=== PATIENT | male | born 1975 | race Caucasian/White ===

== ENCOUNTER 2018-01-17 08:19 | Day surgery (SDC) | payer OTHER ==
[~2018-01-17 08:19] MED LIST: CEFAZOLIN 2 GM/D5W RTU 2 GM/50 ML RTUPB IV ONE; CEFAZOLIN 2 GM/D5W RTU 2 GM/50 ML RTUPB IV PRN
[2018-01-17] MEDS ORDERED: ONDANSETRON HCL INJ/PF 4 MG/2 ML SDV ONE ×2 (08:28→17:13)
[2018-01-17] MEDS ORDERED: DEXAMETHASONE SOD PHOSPHATE INJ 4 MG/1 ML VIAL ONE (08:28)
[2018-01-17] MEDS ORDERED: SUCCINYLCHOLINE CHLORIDE INJ 200 MG/10 ML VIAL ONE (08:28)
[2018-01-17] MEDS ORDERED: KETOROLAC TROMETHAMINE 60 MG/2 ML SDV ONE (08:28)
[2018-01-17] MEDS ORDERED: ROCURONIUM BROMIDE INJ 50 MG/5 ML VIAL IV ONE (08:28)
--- NOTE | 2018-01-17 10:02 | RADIOLOGY REPORT (SQ) ---
EXAM DESCRIPTION: CHEST SINGLE VIEW COMPLETED DATE/TIME: 01/17/2018 9:48 am REASON FOR STUDY: PREOP COMPARISON: None. NUMBER OF VIEWS: One view. TECHNIQUE: Single frontal radiographic view of the chest acquired. LIMITATIONS: None. FINDINGS: LUNGS AND PLEURA: No opacities, masses or pneumothorax. No pleural effusion. MEDIASTINUM AND HILAR STRUCTURES: No masses. Contour normal. HEART AND VASCULAR STRUCTURES: Heart normal in size. Normal vasculature. BONES: No acute findings. HARDWARE: None in the chest. OTHER: No other significant finding. IMPRESSION: NO SIGNIFICANT RADIOGRAPHIC FINDING IN THE CHEST. TECHNICAL DOCUMENTATION: JOB ID: [id number] [employer]- All Rights Reserved Reading location - IP/workstation name: [email or web address]
[2018-01-17 10:13] LABS: HEMATOCRIT 42.2 % (37.9-51.0); HEMOGLOBIN 14.5 g/dL (13.5-17.0); MEAN CORPUSCULAR HEMOGLOBIN 30.4 pg (27.0-33.4); MEAN CORPUSCULAR HGB CONC 34.5 g/dL (32.0-36.0); MEAN CORPUSCULAR VOLUME 88 fl (80-97); PLATELET COUNT 185 10^3/uL (150-450); RED BLOOD COUNT 4.78 10^6/uL (4.35-5.55); RED CELL DISTRIBUTION WIDTH 13.4 % (11.5-14.0); WHITE BLOOD COUNT 5.1 10^3/uL (4.0-10.5)
[2018-01-17 10:36] LABS: ANION GAP 10 (5-19); BLOOD UREA NITROGEN 14 mg/dL (7-20); CALCIUM 9.4 mg/dL (8.4-10.2); CARBON DIOXIDE 28 mmol/L (22-30); CHLORIDE 103 mmol/L (98-107); GLUCOSE 87 mg/dL (75-110); POTASSIUM 5.3 mmol/L (3.6-5.0); SODIUM 140.9 mmol/L (137-145)
[2018-01-17] MEDS ORDERED: FENTANYL CITRATE INJ/PF 100 MCG/2 ML AMPUL ONE (11:50)
[2018-01-17] MEDS ORDERED: HYDROMORPHONE HCL INJ/PF 2 MG/ML AMPULE ONE (11:50)
[2018-01-17] MEDS ORDERED: ACETAMINOPHEN 1,000 MG/100 ML RTUPB IV ONE (11:50)
[2018-01-17] MEDS ORDERED: MIDAZOLAM 2 MG/2 ML INJ ONE (11:50)
[2018-01-17] MEDS ORDERED: PROPOFOL INJ 200 MG/20 ML VIAL IV ONE (11:50)
--- NOTE | 2018-01-17 13:11 | EKG REPORT ---
SEVERITY:- ABNORMAL ECG - SINUS BRADYCARDIA LEFT AXIS DEVIATION NONSPECIFIC T ABNORMALITIES, INFERIOR LEADS : Confirmed by: Chauncey Dubon MD 17-Jan-2018 13:10:50
[2018-01-17] MEDS ORDERED: MORPHINE SULFATE 10 MG/ML INJ IV PRN (14:09)
[2018-01-17] MEDS ORDERED: MEPERIDINE HCL/PF INJ 25 MG/1 ML DISP.SYRIN IV PRN (14:09)
[2018-01-17] MEDS ORDERED: FENTANYL CITRATE INJ/PF 100 MCG/2 ML AMPUL IV PRN ×3 (14:09)
[2018-01-17] MEDS ORDERED: DIPHENHYDRAMINE HCL 50 MG/ML VIAL IV PRN (14:09)
[2018-01-17] MEDS ORDERED: PROMETHAZINE HCL INJ 25 MG/1 ML VIAL IV PRN ×2 (14:09)
[2018-01-17] MEDS ORDERED: HYDROMORPHONE HCL INJ/PF 2 MG/ML AMPULE IV PRN (17:13)
[2018-01-17] MEDS ORDERED: OXYCODONE-ACETAMINOPHEN 5-325 MG TABLET PO PRN (17:13)
[2018-01-17] MEDS ORDERED: ROPIVACAINE HCL 0.5% INJ/PF (5 MG/1 ML) 30 ML SDV ONE (17:19)
[2018-01-17] MEDS ORDERED: LIDOCAINE 2%/EPINEPHRINE INJ 20 ML VIAL ONE (17:20)
[2018-01-17] MEDS ORDERED: LIDOCAINE 2% INJ (20 MG/ML) 20 ML MDV ONE (17:22)
--- NOTE | 2018-01-17 17:22 | Discharge Summary ---
Discharge Summary (SDC) - Discharge Final Diagnosis: Left elbow cubital tunnel syndrome, elbow osteoarthritis with impingement Date of Surgery: 01/17/18 Discharge Date: 01/17/18 Condition: Good Treatment or Instructions: Schedule Follow Up w/ Dr. Alfredo Griffith @ [facility] to be seen in 10-14 days or as scheduled [place]: [place]: [place]: Ice and elevate Keep splint clean/dry/intact. If your fingers become numb please unwrap the Garrick wrap but leave the splint in place, if the sensation does not return within 30 minutes please return to the emergency department. May begin finger range of motion attempting to make full fist. Please use ibuprofen (Motrin or Advil) 600-800 mg every 8 hours as needed for pain or fever DO NOT TAKE w/ TORADOL may use once TORADOL complete. You may also use acetaminophen (Tylenol) 1000 mg every 4-6 hours as needed for pain or fever. Please be aware that many medications contain acetaminophen, do not exceed a total of 1000 mg of acetaminophen every 6 hours. If ibuprofen and acetaminophen are not sufficient for your pain you may take the Percocet/[place]. Please be aware that the Percocet/[place] does contain Tylenol. Stool softener of choice when on pain medication. Prescriptions: Ketorolac Tromethamine [Toradol 10 mg Tablet] 10 mg PO Q8HP PRN #12 tablet PRN Reason: Oxycodone HCl/Acetaminophen [Percocet 5-325 mg Tablet] 1 tab PO Q6 PRN #25 tab PRN Reason: Discharge Diet: As Tolerated Respiratory Treatments at Home: Deep Breathing/Coughing Discharge Activity: No Lifting Over 10 Pounds, No Lifting/Push/Pulling Report the Following to Your Physician Immediately: Fever over 101 Degrees, Unusual Bleeding, Redness, Swelling, Warmth, Increased Soreness
--- NOTE | 2018-01-17 17:22 | Operative Report ---
Operative Report DATE OF SURGERY: 01/17/18 PREOPERATIVE DIAGNOSIS: Left elbow osteoarthritis with impingement, cubital tunnel syndrome POSTOPERATIVE DIAGNOSIS: Same OPERATION: Left elbow arthroscopy with cubital tunnel release ulnar nerve transposition, open debridement with capsular release/debridement arthroplasty SURGEON: KOSTAS PRIDE ANESTHESIA: GA COMPLICATIONS: None ESTIMATED BLOOD LOSS: Minimal PROCEDURE: Indication for above procedure: Pleasant 42-year-old male with long-standing history of osteoarthritis of his left elbow. Patient also has findings of cubital tunnel syndrome. He underwent cubital tunnel release on the right elbow which required revision transposition. He now has similar symptoms with limited motion on the left elbow. Today we discussed treatment options including operative versus nonoperative intervention after discussing risks and benefits of the operative procedure patient has consented for the procedure. Procedure In Detail: Patient was seen and evaluated in the preoperative holding area. The LEFT upper extremity was initialized and marked. Patient received 2g of Ancef IV for bacterial prophylaxis. Patient was taken back to the operative room where transferred to the operative table and placed under general anesthesia. Once they were adequately anesthetized a nonsterile tourniquet was placed on the upper extremity. Patient was placed in a lateral decubitus position axillary roll inserted, bilateral lower extremities and nonoperative right upper extremity were carefully padded and cervical spine placed in a neutral position A surgical team debriefing was performed ensuring all instrumentation was available, the surgical procedure was discussed with possible concerns reviewed. The upper extremity was prepped with ChloraPrep and draped in a sterile fashion. A timeout was done identifying correct patient, procedure and extremity everyone in attendance agree with this and verbalized no concerns. The extremity was exsanguinated the tourniquet was inflated to 250 mmHg. 20 cc of saline was injected into the soft site for insufflation Proximal anterior medial portal was established 2 cm proximal to the medial epicondyle and 1 cm anterior. The intramuscular septum was palpated and blunt dissection was performed with a hemostat down to the capsule. Arthroscope was introduced. Via triangulation a proximal anterior lateral portal was established 2 cm proximal and anterior to the lateral epicondyle. Diagnostic arthroscopy demonstrated degenerative changes of the radiocapitellar joint with chondral loss along the radial head grade IV. There was no evidence of capitellar degeneration. Osteophyte of the coronoid was also visualized. Loose body was found along the anterior aspect of the capitellum which coincide with patient's CT scan. Under direct visualization the loose body was retrieved and removed and measured 2 cm x 2 cm. The anterior capsule was then released off the anterior humerus and partially resected which improved patient' s passive extension. There was evidence of moderate synovitis and a partial synovectomy was performed as well. The portals were then switched and under direct visualization the coronoid osteophyte was removed with an osteotome. The edges were debrided with a bur. A small osteophyte proximal to the trochlear fossa was also removed with the bur. At completion of arthroscopy patient had full flexion with minimal residual flexion contracture. A longitudinal skin incision was made along the midline of the humerus posteriorly just proximal to the olecranon tip. The triceps was split and blunt dissection was performed until the olecranon fossa was visualized. There was significant osteophytes throughout the olecranon fossa and the olecranon tip. With an osteotome the olecranon tip was excised. With the use of the Acumed core bone graft reamers a 12 mm section of the olecranon fossa was removed. The edges were debrided with a rondure. At completion patient had full passive extension and flexion. The wounds were then copiously irrigated with normal saline. The portal holes were closed with interrupted 3-0 nylon suture. Triceps tendon was closed with interrupted 2-0 Vicryl suture. Subcutaneous tissues closed with interrupted 4-0 Monocryl suture. Skin was closed with running horizontal mattress 3-0 nylon. Then turned my attention to ulnar nerve decompression with transposition. A longitudinal skin incision was made centered over the cubital tunnel. Blunt dissection was done through the overlying soft tissues any peripheral vasculature was carefully coagulated with bipolar cautery. The branches of the medial antebrachial cutaneous nerve were identified and protected throughout the entirety of the case. Once within the confines of the cubital tunnel the ulnar nerve was identified at the proximal aspect of the wound. At this level I carefully released a medial portion of the triceps and the medial intermuscular septum freeing the ulnar nerve proximally of any overlying soft tissue compression. Patient had considerable impingement of the ulnar nerve proximally secondary to the intramuscular septum and medial triceps tendon. I then continued to track the ulnar nerve distally releasing Stanford's fascia. At the level of the FCU aponeurosis between the 2 heads of the FCU muscle. At the level of the FCU aponeurosis there was thinning of the nerve with compression evident and hourglassing at this level. The fascia was released once again relieving any external compression from the ulnar nerve distally past the level of the first motor branch. There was evidence of residual fascial bands distal to the first motor branch causing compression these were released as well. Elbow range of motion was then done from full flexion to full extension with full flexion there was evidence of anterior subluxation of the ulnar nerve from the groove. And thus proceeded with subcutaneous ulnar nerve transposition. A section of the medial intermuscular septum was removed to avoid proximal compression or kinking of the nerve after transposition. A vessel loop was placed around the nerve and its posterior vasculature both of which were carefully transposed anteriorly. At this point I checked the nerve proximally and distally to confirm there was no compression with range of motion from full flexion to full extension. Once I ensured no compression of the nerve I carefully dissected the subcutaneous tissues anteriorly taking note to avoid any branches of the medial antebrachial cutaneous nerve. A small subcutaneous flap of adipose tissue was secured to the medial epicondyle with a 3-0 Vicryl suture while a [place] was placed at the level of the ulnar nerve to ensure no external compression from my subcutaneous flap. Once this was complete I once again flexed and extended the elbow ensuring no proximal or distal compression of the ulnar nerve. The tourniquet was then deflated. Compression was made to the wound for 2 minutes. I then identified any peripheral bleeding and carefully coagulated with bipolar cautery, until bleeding was controlled and wound was dry. The wound was then irrigated with normal saline. Subcutaneous tissues were closed with interrupted 4-0 Monocryl. Skin was closed with interrupted and horizontal mattress 3-0 nylon. Wounds dressed with 4 x 4's, soft roll and a posterior splint with the elbow at 70. Sponge counts, instrument counts, needle counts counts were correct. Patient was then awoken from anesthesia. Transferred from the operating room table to the operating room stretcher. There was no intraoperative complications patient tolerated procedure well stable to PACU. Postoperative plan: Patient will follow-up in the office as scheduled which point we will proceed with wound check. She may begin gentle range of motion exercises but avoid any heavy lifting at her first postoperative appointment.
[2018-01-17 19:15] VITALS: BP 134/72
--- NOTE | 2018-01-17 20:38 | RADIOLOGY REPORT (SQ) ---
EXAM DESCRIPTION: NO CHG FLUORO; ELBOW LEFT AP/LATERAL COMPLETED DATE/TIME: 01/17/2018 7:25 pm REASON FOR STUDY: LEFT ELBOW ORIF COMPARISON: None. FLUOROSCOPY TIME: 0.2 minutes 6 Images saved to PACS LIMITATIONS: None. PROCEDURE: ORIF left elbow FINDINGS: Images from fluoro document the procedure. IMPRESSION: ORIF left elbow. Refer to operative note for further information. COMMENT: PQRS 6045F: Fluoroscopy time of the procedure is documented in the report. TECHNICAL DOCUMENTATION: JOB ID: [id number] [employer]- All Rights Reserved Reading location - IP/workstation name: [email or web address]
--- NOTE | 2018-01-17 20:38 | RADIOLOGY REPORT (SQ) ---
EXAM DESCRIPTION: NO CHG FLUORO; ELBOW LEFT AP/LATERAL COMPLETED DATE/TIME: 01/17/2018 7:25 pm REASON FOR STUDY: LEFT ELBOW ORIF COMPARISON: None. FLUOROSCOPY TIME: 0.2 minutes 6 Images saved to PACS LIMITATIONS: None. PROCEDURE: ORIF left elbow FINDINGS: Images from fluoro document the procedure. IMPRESSION: ORIF left elbow. Refer to operative note for further information. COMMENT: PQRS 6045F: Fluoroscopy time of the procedure is documented in the report. TECHNICAL DOCUMENTATION: JOB ID: [id number] [employer]- All Rights Reserved Reading location - IP/workstation name: [email or web address]
== END 2018-01-17 19:10 | disposition home or self-care (01) ==
LOC: OROUT 08:19
PROVIDERS: ATTEND Orthopaedic Surgery
DX: G56.22 Lesion of ulnar nerve, left upper limb (principal); M19.022 Primary osteoarthritis, left elbow; M25.822 Other specified joint disorders, left elbow; M25.722 Osteophyte, left elbow; M24.022 Loose body in left elbow; M65.88 Other synovitis and tenosynovitis, other site
CPT/HCPCS: 36415; 85027; 80048; 71045; 73070; 93005; 93010; 29835; 64718; 24006; C1713; J2795; J2250; J3490 ×3; J1100; J1885; J1170; J0330; J2405; J2704; J0690; J0131; 01740; J3010